=== PATIENT | male | born 1945 | race African-American/Black ===

== ENCOUNTER 2023-05-12 16:44 | Emergency (ER) | payer OTHER, SELFPAY | END 2023-05-12 18:15 | disposition home or self-care (01) | LOC: CSHERS 16:44 | DX: S91.204A Unspecified open wound of right lesser toe(s) with damage to nail, initial encounter (principal); X58.XXXA Exposure to other specified factors, initial encounter | CPT/HCPCS: 99283 ==

== ENCOUNTER 2024-01-01 11:27 | Emergency (ER) | payer OTHER, MEDICARE ==
[2024-01-01] MEDS ORDERED: Ibuprofen 200 MG TAB ONE (13:07)
== END 2024-01-01 13:17 | disposition home or self-care (01) ==
LOC: CSHERS 11:27
DX: M70.31 Other bursitis of elbow, right elbow (principal); I11.0 Hypertensive heart disease with heart failure; I50.9 Heart failure, unspecified; E11.9 Type 2 diabetes mellitus without complications
CPT/HCPCS: 99283

== ENCOUNTER 2025-05-25 17:11 | Inpatient (IN) | payer OTHER ==
[~2025-05-25 17:11] MED LIST: Iopamidol 300 61% 100 ML VIAL FS ONE
[2025-05-25 18:06] LABS: #Basophils Less than 0.03 10x3/uL (0.0-0.2); #Eosinophils 0.04 10x3/uL (0.0-0.5); #Monocytes 1.20 10x3/uL (0.0-1.1); #Neutrophils 9.08 10x3/uL (1.5-8.4); %Basophils 0.2 % (0.0-2.0); %Eosinophils 0.3 % (0.0-6.0); %Lymphocytes 10.0 % (18.0-47.0); %Monocytes 10.4 % (0.0-10.0); %Neutrophils 78.7 % (40.0-75.0); Hematocrit 35.5 % (38.8-50.0); Hemoglobin 11.6 g/dL (13.5-17.5); Mean Corpuscular Hemoglobin 28.3 pg (27.0-33.0); Mean Corpuscular Volume 86.6 fL (81.2-95.1); Platelet Count 174 10x3/uL (150-450); Red Blood Cell (RBC) Count 4.10 10x6/uL (4.32-5.72); White Blood Cell (WBC) Count 11.55 10x3/uL (3.5-10.5)
[2025-05-25 18:22] LABS: ALT (SGPT) 22 U/L (Less than 45); AST (SGOT) 35 U/L (11-34); Albumin 3.9 g/dL (3.1-4.5); Alkaline Phosphatase 44 U/L (40-110); Anion Gap 13 mmol/L (10-20); BUN (Urea Nitrogen) 31 mg/dL (8.4-25.7); Bilirubin, Total 0.6 mg/dL (0.3-1.2); Calc. Creatinine Clearance 0 mL/min (70-130); Calcium 9.4 mg/dL (7.8-10.44); Carbon Dioxide 26 mmol/L (23-31); Chloride 105 mmol/L (98-107); Globulin 3.9 g/dL (2.4-3.5); Glucose 163 mg/dL (83-110); Potassium 4.0 mmol/L (3.5-5.1); Sodium 140 mmol/L (136-145)
[2025-05-25 22:22] LABS: Glucose, Urine (Dipstick) Normal (Negative); Leukocyte Negative (Negative); Protein, Urine (Dipstick) 30 mg/dl (Neg-Trace); Specific Gravity, Urine 1.010 (1.005-1.030)
[2025-05-25 22:28] LABS: CAUTI Indications for Culture Pelvic or flank pain; RBC/HPF 0-3 HPF (0-3); Urine Culture Reflex No No; WBC/HPF None Seen HPF (0-3)
[2025-05-26] MEDS ORDERED: Calcium Carbonate 500 MG ChewTAB PO PRN (01:20)
[2025-05-26] MEDS ORDERED: Glucagon 1 MG/ML KIT IM PRN (01:20)
[2025-05-26] MEDS ORDERED: Senokot S 8.6-50 MG TAB PO PRN (01:20)
[2025-05-26] MEDS ORDERED: Dextrose 50% Abboject 50 ML SYRINGE SLOW IVP PRN (01:20)
[2025-05-26] MEDS: Lactulose 20 GM (30 mL) UDCUP PO SCH (04:06)
[2025-05-26] MEDS: Levothyroxine 150 MCG TAB PO SCH (05:07)
[2025-05-26] MEDS ORDERED: Lisinopril 2.5 MG TAB PO SCH (09:00)
[2025-05-26] MEDS ORDERED: Aspirin 81 mg Enteric Coated Tablet PO SCH (09:00)
[2025-05-26] MEDS: Finasteride 5 MG TAB PO SCH (09:45)
[2025-05-26] MEDS: Enoxaparin 40 MG (0.4 mL) SYRINGE SC SCH (09:45)
[2025-05-26] MEDS: Cyanocobalamin (Vitamin B-12) 1,000 MCG TAB PO SCH (09:45)
[2025-05-26] MEDS: Pantoprazole 40 MG DR.TAB PO SCH (09:45)
[2025-05-26] MEDS: Folic Acid 1 MG TAB PO SCH (09:45)
[2025-05-26] MEDS: Senokot S 8.6-50 MG TAB PO SCH (09:45)
[2025-05-26] MEDS: Lantus 1000 UNITS/10 ML VIAL SC SCH (09:46)
[2025-05-26] MEDS: Carvedilol 3.125 MG TAB PO SCH (09:46)
[2025-05-26] MEDS: Cholecalciferol 1,000 UNITS (25 MCG) TAB PO SCH (09:46)
[2025-05-26 10:14] LABS: #Basophils 0.04 10x3/uL (0.0-0.2); #Eosinophils 0.10 10x3/uL (0.0-0.5); #Monocytes 1.04 10x3/uL (0.0-1.1); #Neutrophils 7.83 10x3/uL (1.5-8.4); %Basophils 0.4 % (0.0-2.0); %Eosinophils 0.9 % (0.0-6.0); %Lymphocytes 14.8 % (18.0-47.0); %Monocytes 9.8 % (0.0-10.0); %Neutrophils 73.7 % (40.0-75.0); Hematocrit 36.0 % (38.8-50.0); Hemoglobin 12.0 g/dL (13.5-17.5); Mean Corpuscular Hemoglobin 29.3 pg (27.0-33.0); Mean Corpuscular Volume 88.0 fL (81.2-95.1); Platelet Count 175 10x3/uL (150-450); Red Blood Cell (RBC) Count 4.09 10x6/uL (4.32-5.72); White Blood Cell (WBC) Count 10.62 10x3/uL (3.5-10.5)
[2025-05-26 11:03] LABS: Anion Gap 13 mmol/L (10-20); BUN (Urea Nitrogen) 23 mg/dL (8.4-25.7); Calc. Creatinine Clearance 26 mL/min (70-130); Calcium 9.1 mg/dL (7.8-10.44); Carbon Dioxide 25 mmol/L (23-31); Chloride 104 mmol/L (98-107); Glucose 91 mg/dL (83-110); Potassium 3.8 mmol/L (3.5-5.1); Sodium 138 mmol/L (136-145)
[2025-05-26 11:23] LABS: Thyroid Stimulating Hormone 3.6884 uIU/mL (0.35-4.94)
[2025-05-26] MEDS: PNEUMOC 20-VAL CONJ-DIP CRM/PF 0.5 ML SYRINGE IM ONE (16:49)
[2025-05-26] MEDS: Guaifenesin DM 100-10/5 ML UDCUP PO PRN (16:50)
[2025-05-26 17:46] LABS: Vitamin B12 1981.0 pg/mL (211-911)
[2025-05-27 05:16] VITALS: BMI 20.6
[2025-05-27] MEDS ORDERED: Enoxaparin 30 MG (0.3 mL) SYRINGE SC SCH (09:00)
[2025-05-27] MEDS: Bisacodyl 10 MG SUPP PR PRN (23:43)
[2025-05-28 15:02] LABS: #Basophils Less than 0.03 10x3/uL (0.0-0.2); #Eosinophils Less than 0.03 10x3/uL (0.0-0.5); #Monocytes 0.91 10x3/uL (0.0-1.1); #Neutrophils 11.95 10x3/uL (1.5-8.4); %Basophils 0.1 % (0.0-2.0); %Eosinophils 0.1 % (0.0-6.0); %Lymphocytes 6.2 % (18.0-47.0); %Monocytes 6.6 % (0.0-10.0); %Neutrophils 86.4 % (40.0-75.0); Hematocrit 38.0 % (38.8-50.0); Hemoglobin 12.2 g/dL (13.5-17.5); Mean Corpuscular Hemoglobin 28.4 pg (27.0-33.0); Mean Corpuscular Volume 88.6 fL (81.2-95.1); Platelet Count 186 10x3/uL (150-450); Red Blood Cell (RBC) Count 4.29 10x6/uL (4.32-5.72); White Blood Cell (WBC) Count 13.81 10x3/uL (3.5-10.5)
[2025-05-28 18:12] LABS: Glucose, Urine (Dipstick) Normal (Negative); Leukocyte Negative (Negative); Protein, Urine (Dipstick) 30 mg/dl (Neg-Trace); Specific Gravity, Urine 1.020 (1.005-1.030)
[2025-05-28 18:20] LABS: Bacteria/HPF None Seen HPF (None Seen); CAUTI Indications for Culture Acute Hematuria; RBC/HPF None Seen HPF (0-3); WBC/HPF None Seen HPF (0-3)
[2025-05-28 18:21] LABS: Urine Culture Reflex No No
[2025-05-29 03:53] LABS: #Basophils Less than 0.03 10x3/uL (0.0-0.2); #Eosinophils 0.04 10x3/uL (0.0-0.5); #Monocytes 1.05 10x3/uL (0.0-1.1); #Neutrophils 10.69 10x3/uL (1.5-8.4); %Basophils 0.1 % (0.0-2.0); %Eosinophils 0.3 % (0.0-6.0); %Lymphocytes 8.6 % (18.0-47.0); %Monocytes 8.1 % (0.0-10.0); %Neutrophils 82.6 % (40.0-75.0); Hematocrit 38.7 % (38.8-50.0); Hemoglobin 12.4 g/dL (13.5-17.5); Mean Corpuscular Hemoglobin 28.1 pg (27.0-33.0); Mean Corpuscular Volume 87.6 fL (81.2-95.1); Platelet Count 200 10x3/uL (150-450); Red Blood Cell (RBC) Count 4.42 10x6/uL (4.32-5.72); White Blood Cell (WBC) Count 12.95 10x3/uL (3.5-10.5)
[2025-05-29 04:04] LABS: Anion Gap 12 mmol/L (10-20); BUN (Urea Nitrogen) 21 mg/dL (8.4-25.7); Calc. Creatinine Clearance 59 mL/min (70-130); Calcium 9.2 mg/dL (7.8-10.44); Carbon Dioxide 30 mmol/L (23-31); Chloride 97 mmol/L (98-107); Glucose 156 mg/dL (83-110); Potassium 4.1 mmol/L (3.5-5.1); Sodium 135 mmol/L (136-145)
[2025-05-31] MEDS: Carvedilol 12.5 MG TAB PO SCH (08:20)
[2025-05-31] MEDS: BuPROPion XL 150 MG ER.TAB PO SCH (08:20)
[2025-05-31] MEDS: Acetaminophen 325 MG TAB PO PRN (11:11)
[2025-05-31] MEDS: Spironolactone 25 MG TAB PO SCH (21:45)
[2025-06-01 11:20] VITALS: TEMP 98
[2025-06-01 16:19] VITALS: BP 143/70
== END 2025-06-01 19:14 | DRG 184 ==
LOC: CSHERS 17:11 → CSHERHOLD 05-26 01:26 → CSHICU 05-26 03:05 → OBSVTOIN 05-27 10:55 → CSHTELE 05-29 15:40
PROVIDERS: ADMIT Student in an Organized Health Care Education/Training Program; ATTEND Hospitalist
DX: S22.41XA Multiple fractures of ribs, right side, initial encounter for closed fracture (principal); G91.2 (Idiopathic) normal pressure hydrocephalus; N17.9 Acute kidney failure, unspecified; R32 Unspecified urinary incontinence; K59.00 Constipation, unspecified; R29.6 Repeated falls; N18.30 Chronic kidney disease, stage 3 unspecified; I12.9 Hypertensive chronic kidney disease with stage 1 through stage 4 chronic kidney disease, or unspecified chronic kidney disease; E11.42 Type 2 diabetes mellitus with diabetic polyneuropathy; D63.1 Anemia in chronic kidney disease; F03.90 Unspecified dementia, unspecified severity, without behavioral disturbance, psychotic disturbance, mood disturbance, and anxiety; E78.5 Hyperlipidemia, unspecified; E11.22 Type 2 diabetes mellitus with diabetic chronic kidney disease; Z98.890 Other specified postprocedural states; Z87.891 Personal history of nicotine dependence; W19.XXXA Unspecified fall, initial encounter; I25.2 Old myocardial infarction; W01.0XXA Fall on same level from slipping, tripping and stumbling without subsequent striking against object, initial encounter
CPT/HCPCS: 36415; 36416; 70450; 70551; 71260; 72125; 74177; 80048; 80053; 81001; 82607; 84443; 85025; 85610; 85730; 93005; 96372; 96374; 96376; G0378; J1650; J1815; J2270; J2272; J7120; Q9967